=== PATIENT | male | born 1945 | race Caucasian/White ===

== ENCOUNTER → 2016-10-17 | Outpatient (CLI) | payer MEDICARE, OTHER ==
[~2016-10-17] MED LIST: REGADENOSON 0.4 MG/5 ML DISP.SYRIN. IV ONE
--- NOTE | 2016-10-17 13:33 | PCVCIMAG ---
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 Pretest Chest Pain Characteristics: No chest pain Exercise History: Physically active Stress Test Details Stress Test: Exercise stress converted to pharmacologic stress due to failure to obtain a diagnostic stress test. Reason for pharmacologic stress test: changed from exercise stress test due to inability to reach target heart rate. HR Resting HR: 50 bpmMax Heart Rate (APMHR): 150 bpm Max HR Achieved: 91 bpmTarget HR (85% APMHR): 127 bpm % of APMHR: 60 Recovery HR: 69 bpm HR response to stress: Blunted HR response to stress BP Resting BP: 159/100 mmHg Max BP: 126/90 mmHg Recovery BP: 152/77 mmHg ECG Resting ECG: Sinus Bradycardia Stress ECG: Sinus Rhythm ST Change: Non-ischemic Arrhythmia: None Recovery ECG: Sinus Rhythm Recovery Arrhythmia: None Clinical Reason for Termination: Completed protocol Stress Symptoms: Headache, Leg Fatigue, resolved during recovery. Exercise duration: 4 min 00 sec Exercise capacity: 1.6 METs Symptoms resolved during recovery. No complications. DE EXAM: Myocardial Perfusion REST/STRESS Imaging Protocol: Rest Tc-99m/Stress Tc-99m 1 day Resting Data Rest SPECT myocardial perfusion imaging was performed in supine position 45 minutes following the intravenous injection of 10.6 mCi of Tc-99m Sestamibi. Time of rest injection: 819 Date: 10/17/2016 Pharmacologic Stress Pharmacologic stress test was performed by injecting Regadenoson 0.4 mg IV push followed by the intravenous injection of 32.4 mCi of Tc-99m Sestamibi. Time of stress injection: 924 Date: 10/17/2016 Gated Stress SPECT was performed 45 minutes after stress injection. The images were gated to evaluate regional wall motion and calculate left ventricular ejection fraction. Study Quality Study: Good Artifact: Mild Diaphragmatic artifact Study Data Post stress, the left ventricular ejection was 60%.. SSS: 14 SRS: 9 SDS: 5 TID = 0.94. Perfusion There is a medium area of mildly reduced uptake in the basal and mid segment of the inferior wall which is seen on the stress images as well as the resting images. This area is hypokinetic and is most consistent with myocardial scar. Wall Motion Normal left ventricular ejection fraction, mild hypokinesis inferiorly. Clinical Findings: Nondiagnostic EKG Findings: Nonischemic Nuclear Conclusion Nontransmural infarct in the mid to basal inferior segment. Normal LV systolic function. No prior study available for comparison.
== END | disposition home or self-care (01) ==
LOC: PCVCIMAG 08:00
PROVIDERS: ATTEND Internal Medicine Cardiovascular Disease
DX: I25.10 Atherosclerotic heart disease of native coronary artery without angina pectoris (principal); I10 Essential (primary) hypertension; E78.00 Pure hypercholesterolemia, unspecified; F17.200 Nicotine dependence, unspecified, uncomplicated; Z79.82 Long term (current) use of aspirin
CPT/HCPCS: 78452; 93005; 93017; A9500; G0463; J2785

== ENCOUNTER → 2017-04-09 | Outpatient (CLI) | payer MEDICARE, OTHER | END | disposition home or self-care (01) | LOC: PCVCCLINIC 10:40 | PROVIDERS: ATTEND Internal Medicine Cardiovascular Disease | DX: I25.10 Atherosclerotic heart disease of native coronary artery without angina pectoris (principal); R00.1 Bradycardia, unspecified; I10 Essential (primary) hypertension; E78.00 Pure hypercholesterolemia, unspecified; Z79.82 Long term (current) use of aspirin; Z79.899 Other long term (current) drug therapy | CPT/HCPCS: 93005; G0463 ==

== ENCOUNTER → 2017-10-08 | Outpatient (CLI) | payer MEDICARE, OTHER | END | disposition home or self-care (01) | LOC: PCVCCLINIC 11:49 | DX: I25.10 Atherosclerotic heart disease of native coronary artery without angina pectoris (principal); I10 Essential (primary) hypertension; E78.00 Pure hypercholesterolemia, unspecified; Z72.0 Tobacco use; Z79.82 Long term (current) use of aspirin | CPT/HCPCS: 93005; G0463 ==

== ENCOUNTER → 2018-04-08 | Outpatient (CLI) | payer MEDICARE, OTHER ==
--- NOTE | 2018-04-08 12:16 | PCVCIMAG ---
APPROVED REPORT Study performed: 04/08/2018 11:16:19 EXAM: Comprehensive 2D, Doppler, and color-flow Echocardiogram Patient Location: Echo lab Status: routine BSA: 1.90 HR: 66 bpmBP: 110/76 mmHg Rhythm: NSR Other Information Study Quality: Good Risk Factors: Cardiac Risk Factors: Smoking, HTN, Hyperlipidemia Indications CAD Hypertension/HDD Old Inferior CA, PAD w stents 2D Dimensions RVDd: 31.40 mm IVSd: 8.26 (7-11mm)LVOT Diam: 20.68 (18-24mm) LVDd: 45.32 mm PWd: 7.93 (7-11mm)Ascending Ao: 31.50 (22-36mm) LVDs: 25.66 (25-40mm) Left Atrium: 29.89 (27-40mm) LV Single Plane 4CH: 58.93 % LV Single Plane 2CH: 68.93 % Biplane EF: 63.7 % Volumes Left Atrial Volume (Systole) Single Plane 4CH: 19.03 mLSingle Plane 2CH: 17.89 mL Biplane LA Volume: 20.00 mLLA ESV Index: 11.00 mL/m2 Aortic Valve AoV Peak Balta.: 1.31 m/s AO Peak Gr.: 6.89 mmHgLVOT Max P.10 mmHg LVOT Max V: 1.01 m/s BERYL Vmax: 2.59 cm2 Mitral Valve E/A Ratio: 0.6 MV Decel. Time: 301.43 ms MV E Max Balta.: 0.49 m/s MV A Balta.: 0.82 m/s MV PHT: 87.42 ms IVRT: 117.65 ms TDI E/Lateral E': 9.80E/Medial E': 8.17 Medial E' Balta.: 0.06 m/s Lateral E' Balta.: 0.05 m/s Pulmonary Valve PV Peak Balta.: 0.86 m/sPV Peak Gr.: 2.94 mmHg Pulmonary Vein P Vein S: 0.95 m/sP Vein A: 0.93 m/s P Vein D: 0.43 m/sP Vein A Dur.: 76.1 msec P Vein S/D Ratio: 2.21 Tricuspid Valve TR Peak Balta.: 2.74 m/s TR Peak Gr.: 29.93 mmHg TV Vmax: 0.62 m/sPA Pressure: 37.00 mmHg Left Ventricle The left ventricle is normal size. Basal-mid inferior hypokinesis consistent with known old CA There is normal left ventricular wall thickness. Left ventricular systolic function is normal. The left ventricular ejection fraction is within the normal range. LVEF is 60-65%. Grade I - abnormal relaxation pattern. Right Ventricle The right ventricle is normal size. The right ventricular systolic function is normal. Atria The left atrium size is normal. Right atrium is mildly dilated. Aortic Valve Aortic valve is trileaflet. The aortic valve is normal in structure and function. No aortic regurgitation is present. There is no aortic valvular stenosis. Mitral Valve The mitral valve is normal in structure. There is no mitral valve regurgitation noted. No evidence of mitral valve stenosis. Tricuspid Valve The tricuspid valve is normal in structure. Mild tricuspid regurgitation with a PA pressure of 37 mmHg. Pulmonic Valve The pulmonary valve is normal in structure. There is no pulmonic valvular regurgitation. Great Vessels The aortic root is normal in size. The ascending aorta is normal in size. IVC is normal in size and collapses >50% with inspiration. Pericardium There is no pericardial effusion. There is no pleural effusion. <Conclusion> The left ventricle is normal size. There is normal left ventricular wall thickness. Left ventricular systolic function is normal. Basal-mid inferior hypokinesis consistent with known old CA Grade I - abnormal relaxation pattern. The right ventricle is normal size. Right atrium is mildly dilated. There is no aortic valvular stenosis. The mitral valve is normal in structure. Mild tricuspid regurgitation with a PA pressure of 37 mmHg.
== END | disposition home or self-care (01) ==
LOC: PCVCIMAG 10:46
PROVIDERS: ATTEND Internal Medicine Cardiovascular Disease
DX: I07.1 Rheumatic tricuspid insufficiency (principal); I25.10 Atherosclerotic heart disease of native coronary artery without angina pectoris; I25.2 Old myocardial infarction; E78.5 Hyperlipidemia, unspecified; I10 Essential (primary) hypertension; F17.200 Nicotine dependence, unspecified, uncomplicated; E78.00 Pure hypercholesterolemia, unspecified; Z79.82 Long term (current) use of aspirin
CPT/HCPCS: 93005; 93306; G0463

== ENCOUNTER → 2018-10-15 | Outpatient (CLI) | payer MEDICARE, OTHER ==
--- NOTE | 2018-10-15 10:44 | PCVCIMAG ---
APPROVED REPORT Study performed: 10/15/2018 09:46:20 Exam: Stress Echocardiogram Indication: CAD w/ occluded RCA Patient Location: Echo lab Stress Nurse: Eva Mary RN Status: routine Ht: 5 ft 9 in HR: 67 bpm BP: 132/92 mmHg Rhythm: NSR Procedure The patient underwent an Exercise Stress Test using the David Protocol. Blood pressure, heart rate, and EKG were monitored. An Echocardiogram was performed by water and fire technician in four stages in quad fashion. At peak stress, four selected images were obtained and placed side by side with resting images for comparison. Stress Test Details Stress Test: Exercise stress testing was performed using a David protocol. HR Resting HR: 67 bpmMax Heart Rate (APMHR): 148 bpm Max HR Achieved: 133 bpmTarget HR (85% APMHR): 125 bpm % of APMHR: 89 Recovery HR: 88 bpm HR response to stress: Normal HR response to stress BP Resting BP: 132/92 mmHg Max BP: 156/84 mmHg Recovery BP: 140/80 mmHg BP response to stress: Normal blood pressure response to stress. ECG Resting ECG: Sinus Rhythm Stress ECG: Sinus Rhythm ST Change: Non-ischemic Arrhythmia: isolated PVCs Recovery ECG: Sinus Rhythm Recovery ST Change: Normal Recovery Arrhythmia: None Clinical Reason for Termination: Maximal effort, leg fatigue Stress Symptoms: Leg Fatigue, Dyspnea Exercise duration: 7 min 7 sec Highest Stage Achieved: Stage 3: 3.4 mph at 14% grade. Exercise capacity: 9.5 METs Overall Exercise Capacity for Age: Normal Scale: Active Angina Score: None Pre-Stress Echo The resting Echocardiogram showed normal left ventricular contractility with an estimated Ejection Fraction of about 50-55%. Fixed inferior basal hypokinesis. Post-Stress Echo The stress Echocardiogram showed normal left ventricular contractility with an estimated Ejection Fraction of about 60-65%. Fixed inferior basal hypokinesis. Normal augmentation of wall motion in all other segments on post stress images. Clinical No clinical or ECG evidence for ischemia. Conclusion Clinical Response: Non-ischemic Exercise Capacity: Average Stress ECG Response: Non-ischemic Stress Echo Images: Non-ischemic The left ventricle is normal in size and wall thickness in both the rest and stress images. Other Information Study Quality: Adequate <Conclusion> The left ventricle is normal in size and wall thickness in both the rest and stress images.
== END | disposition home or self-care (01) ==
LOC: PCVCIMAG 09:53
PROVIDERS: ATTEND Internal Medicine Cardiovascular Disease
DX: I25.10 Atherosclerotic heart disease of native coronary artery without angina pectoris (principal); E78.00 Pure hypercholesterolemia, unspecified; I10 Essential (primary) hypertension; F17.200 Nicotine dependence, unspecified, uncomplicated; Z79.82 Long term (current) use of aspirin
CPT/HCPCS: 93325; 93351; G0463

== ENCOUNTER → 2019-04-15 | Outpatient (CLI) | payer MEDICARE, OTHER | END | disposition home or self-care (01) | LOC: PCVCCLINIC 10:30 | PROVIDERS: ATTEND Internal Medicine Cardiovascular Disease | DX: I25.10 Atherosclerotic heart disease of native coronary artery without angina pectoris (principal); E78.00 Pure hypercholesterolemia, unspecified; I10 Essential (primary) hypertension; E78.5 Hyperlipidemia, unspecified; F17.200 Nicotine dependence, unspecified, uncomplicated; Z79.899 Other long term (current) drug therapy; Z79.82 Long term (current) use of aspirin; Z88.8 Allergy status to other drugs, medicaments and biological substances | CPT/HCPCS: 93005; G0463 ==